=== PATIENT | female | born 1940 | race Caucasian/White ===

== ENCOUNTER 2016-12-30 11:13 | Outpatient (CLI) | payer MEDICARE, MEDICAID ==
[2016-12-30 11:50] LABS: Anion Gap 15 mmol/L (10-20); BUN (Urea Nitrogen) 15 mg/dL (9.8-20.1); Calc. Creatinine Clearance 0 mL/min (70-130); Calcium 9.9 mg/dL (7.8-10.44); Carbon Dioxide 25 mmol/L (23-31); Chloride 102 mmol/L (98-107); Estimated GFR-MDRD 70; Glucose 91 mg/dL (83-110); Sodium 137 mmol/L (136-145)
[2016-12-30 12:15] LABS: Hemoglobin 9.9 g/dL (12.0-16.0); Mean Corpuscular HGB CONC 34.3 g/dL (32.0-36.0); Mean Corpuscular Hemoglobin 40.2 pg (27.0-31.0); Mean Corpuscular Volume 117.3 fl (81.0-99.0); Mean Platelet Volume 7.6 fL (7.4-10.4); Platelet Count 95 thou/uL (130-400); RBC Distribution Width 14.9 % (11.5-14.5); Red Blood Cell (RBC) Count 2.46 mill/uL (4.20-5.40); White Blood Cell (WBC) Count 2.2 thou/uL (4.8-10.8)
[2016-12-30 12:16] LABS: Anisocytosis MODERATE=16-30 cells (100X) (0-5/hpf); Band 13 % (5-11); Eosinophils 1 % (0-10); Lymphocytes 36 % (21-51); MDiff Complete? YES; Macrocytosis MODERATE=16-30 cells (100X) (0-5/hpf); Metamyelocyte 2 % (0-0); Microcytosis SLIGHT = 6-15 cells (100X) (0-5/hpf); Monocytes 7 % (0-10); Neutrophil 37 % (42-75); Ovalocytes SLIGHT = 2-5 cells (100X) (0-1/hpf); PLT Morphology Comment Appears Adequate; Poikilocytosis MODERATE=16-30 cells (100X) (0-5/hpf); Reactive Lymphocytes 5 % (0-10)
== END 2016-12-30 11:14 | disposition home or self-care (01) ==
LOC: MADLABBHPM 11:13
PROVIDERS: ATTEND Family Medicine
DX: E87.1 Hypo-osmolality and hyponatremia (principal); D61.818 Other pancytopenia
CPT/HCPCS: 36415; 80048; 82728; 85025

== ENCOUNTER 2017-01-29 12:00 | Outpatient (CLI) | payer MEDICAID, MEDICARE ==
[2017-01-29 13:04] LABS: Anion Gap 12 mmol/L (10-20); BUN (Urea Nitrogen) 20 mg/dL (9.8-20.1); Calc. Creatinine Clearance 0 mL/min (70-130); Carbon Dioxide 26 mmol/L (23-31); Chloride 101 mmol/L (98-107); Estimated GFR-MDRD 71; Glucose 85 mg/dL (83-110); Potassium 4.9 mmol/L (3.5-5.1); Sodium 134 mmol/L (136-145)
[2017-01-29 13:11] LABS: Band 11 % (5-11); Hemoglobin 10.8 g/dL (12.0-16.0); Lymphocytes 32 % (21-51); MDiff Complete? YES; Mean Corpuscular HGB CONC 33.8 g/dL (32.0-36.0); Mean Corpuscular Hemoglobin 39.7 pg (27.0-31.0); Mean Corpuscular Volume 117.7 fl (81.0-99.0); Mean Platelet Volume 8.6 fL (7.4-10.4); Monocytes 4 % (0-10); Neutrophil 53 % (42-75); PLT Morphology Comment Appears Decreased; Platelet Count 78 thou/uL (130-400); RBC Distribution Width 14.5 % (11.5-14.5); Red Blood Cell (RBC) Count 2.72 mill/uL (4.20-5.40); White Blood Cell (WBC) Count 2.5 thou/uL (4.8-10.8)
== END 2017-01-29 12:01 | disposition home or self-care (01) ==
LOC: MADLABBHPM 12:00
PROVIDERS: ATTEND Family Medicine
DX: D61.818 Other pancytopenia (principal); E87.1 Hypo-osmolality and hyponatremia
CPT/HCPCS: 36415; 80048; 85025

== ENCOUNTER 2017-04-09 15:37 | Outpatient (CLI) | payer MEDICAID, MEDICARE ==
[2017-04-09 16:20] LABS: Anion Gap 12 mmol/L (10-20); BUN (Urea Nitrogen) 21 mg/dL (9.8-20.1); Calc. Creatinine Clearance 0 mL/min (70-130); Calcium 9.8 mg/dL (7.8-10.44); Carbon Dioxide 26 mmol/L (23-31); Chloride 101 mmol/L (98-107); Estimated GFR-MDRD 67; Glucose 98 mg/dL (83-110); Potassium 4.3 mmol/L (3.5-5.1); Sodium 135 mmol/L (136-145)
[2017-04-09 17:09] LABS: Hemoglobin 9.3 g/dL (12.0-16.0); Manual Diff?? YES; Mean Corpuscular Hemoglobin 37.7 pg (27.0-31.0); Mean Platelet Volume 7.7 fL (7.4-10.4); Platelet Count 94 thou/uL (130-400); RBC Distribution Width 15.8 % (11.5-14.5); Red Blood Cell (RBC) Count 2.47 mill/uL (4.20-5.40); White Blood Cell (WBC) Count 2.4 thou/uL (4.8-10.8)
[2017-04-09 17:10] LABS: Anisocytosis MODERATE=16-30 cells (100X) (0-5/hpf); Band 18 % (5-11); Eosinophils 2 % (0-10); Lymphocytes 22 % (21-51); MDiff Complete? YES; Monocytes 10 % (0-10); Neutrophil 48 % (42-75)
[2017-04-09 17:11] LABS: PLT Morphology Comment Appears Decreased
== END 2017-04-09 15:38 | disposition home or self-care (01) ==
LOC: MADLABBHPM 15:37
PROVIDERS: ATTEND Family Medicine
DX: D61.818 Other pancytopenia (principal)
CPT/HCPCS: 80048; 85025

== ENCOUNTER 2017-05-29 15:45 | Outpatient (CLI) | payer MEDICARE ==
[2017-05-29 16:18] LABS: Anion Gap 14 mmol/L (10-20); BUN (Urea Nitrogen) 16 mg/dL (9.8-20.1); Calc. Creatinine Clearance 0 mL/min (70-130); Calcium 9.7 mg/dL (7.8-10.44); Carbon Dioxide 25 mmol/L (23-31); Chloride 104 mmol/L (98-107); Estimated GFR-MDRD 77; Glucose 93 mg/dL (83-110); Potassium 4.5 mmol/L (3.5-5.1); Sodium 138 mmol/L (136-145)
[2017-05-29 19:00] LABS: Anisocytosis SLIGHT = 6-15 cells (100X) (0-5/hpf); Band 9 % (5-11); Eosinophils 2 % (0-10); Hemoglobin 9.4 g/dL (12.0-16.0); Hypochromia SLIGHT = 6-15 cells (100X) (0-5/hpf); Lymphocytes 18 % (21-51); MDiff Complete? YES; Mean Corpuscular Hemoglobin 39.5 pg (27.0-31.0); Mean Corpuscular Volume 116.4 fl (81.0-99.0); Mean Platelet Volume 7.4 fL (7.4-10.4); Monocytes 12 % (0-10); Neutrophil 59 % (42-75); PLT Morphology Comment Appears Decreased; Platelet Count 85 thou/uL (130-400); RBC Distribution Width 16.1 % (11.5-14.5); Red Blood Cell (RBC) Count 2.38 mill/uL (4.20-5.40); White Blood Cell (WBC) Count 2.4 thou/uL (4.8-10.8)
== END 2017-05-29 15:46 | disposition home or self-care (01) ==
LOC: MADLAB 15:45
PROVIDERS: ATTEND Family Medicine
DX: D61.818 Other pancytopenia (principal)
CPT/HCPCS: 36415; 80048; 85025

== ENCOUNTER 2018-07-13 15:57 | Inpatient (IN) | payer MEDICARE ==
[~2018-07-13 15:57] MED LIST: Sodium Chloride 0.9% 1,000 ML BAG ONE
[2018-07-13 16:46] LABS: INR-International Normal Ratio 1.3; PTT 41.6 SEC (22.9-36.1)
[2018-07-13 16:51] LABS: Anion Gap 14 mmol/L (10-20); BUN (Urea Nitrogen) 14 mg/dL (9.8-20.1); Calc. Creatinine Clearance 0 mL/min (70-130); Calcium 8.4 mg/dL (7.8-10.44); Carbon Dioxide 20 mmol/L (23-31); Chloride 106 mmol/L (98-107); Estimated GFR-MDRD 71; Glucose 74 mg/dL (83-110); Potassium 3.2 mmol/L (3.5-5.1); Sodium 137 mmol/L (136-145)
[2018-07-13 16:58] LABS: Troponin I 0.012 ng/mL (< 0.028)
[2018-07-13 17:18] LABS: Band 4 % (5-11); Hemoglobin 6.5 g/dL (12.0-16.0); Hypochromia MODERATE=16-30 cells (100X) (0-5/hpf); Lymphocytes 26 % (21-51); MDiff Complete? YES; Mean Corpuscular HGB CONC 30.7 g/dL (32.0-36.0); Mean Corpuscular Hemoglobin 39.8 pg (27.0-31.0); Mean Corpuscular Volume 129.6 fL (78.0-98.0); Mean Platelet Volume 7.4 fL (7.4-10.4); Monocytes 7 % (0-10); Neutrophil 63 % (42-75); PLT Morphology Comment Appears Decreased; Platelet Count 60 thou/uL (130-400); RBC Distribution Width 17.3 % (11.5-14.5); Red Blood Cell (RBC) Count 1.64 mill/uL (4.20-5.40); White Blood Cell (WBC) Count 1.4 thou/uL (4.8-10.8)
[2018-07-13 20:56] VITALS: BMI 21.8
[2018-07-13] MEDS ORDERED: HYDROcodone/Acetaminophen 5/325 mg Tablet PO PRN ×2 (20:59)
[2018-07-13] MEDS ORDERED: Ondansetron ODT 4 MG TAB PO PRN (20:59)
[2018-07-13] MEDS ORDERED: Famotidine 20 MG TAB PO SCH (21:15)
[2018-07-13] MEDS: HYDROcodone/Acetaminophen 10/325 mg Tablet PO SCH ×4 (22:18→22:33)
[2018-07-13] MEDS: Famotidine 20 MG TAB PO SCH (22:18)
[2018-07-14] MEDS: Acetaminophen 325 MG TAB PO PRN (01:20)
[2018-07-14] MEDS ORDERED: Sodium Chloride 0.9% 250 ML 250 ML IVPB SCH (01:30)
[2018-07-14] MEDS: Sodium Chloride 0.9% 1,000 ML IV SCH ×3 (02:19→22:36)
[2018-07-14] MEDS ORDERED: Albuterol Sulfate 2.5 mg/3 ml Neb NEB PRN (08:44)
[2018-07-14] MEDS: Famotidine 20 MG TAB PO SCH ×2 (09:24→20:13)
--- NOTE | 2018-07-14 09:27 | RAD ---
PORTABLE CHEST: History: Cough, congestion. FINDINGS: Patient is rotated on this exam. There is some elevation to the left hemidiaphragm. Heart size is crispin ewhat difficult to assess but is felt to be upper limits of normal. Right lung is clear. There is que stionable blunting to the left costophrenic angle. IMPRESSION: Elevated left hemidiaphragm. Some increased density in the left base, difficult to assess due to the diaphragm. This could indicate some effusion or possibly atelectasis or retrocardiac infiltrate. PA a nd lateral chest exam would be helpful in assessment. POS: [facility]
[2018-07-14] MEDS: HYDROcodone/Acetaminophen 5/325 mg Tablet PO PRN ×2 (09:45→22:18)
--- NOTE | 2018-07-14 10:08 | HP ---
CHIEF COMPLAINT: Bloody diarrhea and weakness. HISTORY OF PRESENT ILLNESS: Ms. Montes De Oca is a 77-year-old white female who has a history of myelodysplas tic syndrome manifest with anemia, thrombocytopenia and neutropenia. She also has a history of adeno carcinoma of the colon that was diagnosed in 2016 that she was not a candidate for any type of interv ention and had opted for no treatment. She also has COPD and rheumatoid arthritis. She has chronic low back pain secondary to spondylosis. She resides at her home and is usually able to manage her AD Ls and gets around in a wheelchair. She has family that comes in and assists her when needed and wit h her instrumental ADLs. The patient was brought to the emergency room on the late afternoon of 07/13/2018 because of progress fox weakness and also because of bloody diarrhea. The patient said for the last 4 weeks she has been having frequent watery bowel movements that had been bloody. The blood has been bright. She said h er appetite has not been as good as usual. She occasionally gets a little nauseated, but is not havi ng any vomiting. The patient said she has grown progressively weaker to where she could no longer ma nage herself and family has brought her to the emergency room. She did not want to be transferred to any hospital of higher level of care, says she knows she has a cancer nothing can be done for. She is hoping that she could just be managed here. The patient was evaluated in the emergency room and h er lab work showed an H&H of 6.5 and 21.2 with a white cell count of 1400 with 63% segs, 4% bands, 26 % lymphocytes, platelet count was 60,000. Her PT was 16, INR 1.3, PTT 41.6. Sodium 137, potassium 3 .2, BUN 14, creatinine 0.78, glucose 74. CK-MB 1 and troponin I was 0.012. The patient was admitted to the hospital with the diagnosis of the bloody diarrhea and also the severe anemia. Blood was ord ered for transfusion, but transfusion has been delayed because of an antibody found blood. This bloo d was forwarded to the blood bank and blood has been sent back as of the morning of 07/14/2018. The patient was seen early on the morning of 07/14/2018 by myself. The patient said that she was re stless during the night. The patient said that her family had brought her to the emergency room dena use of increasing weakness such that she was being dizzy when she got up and was much weaker, not abl e to take care of herself. She was also having the ongoing bloody diarrhea. She said she may have 7 -10 bowel movements in a 24-hour period that just has not improved. The patient did not want to go a nywhere else. She knows that there was nothing that could be done about her colon nor did she want a nything done. During the night her blood pressure did drop into the 70s systolic and she has been st arted on IV fluids and received a small bolus of fluids, bringing her pressure up to 80-90 and pulses in his 70s. PAST HISTORY: Colorectal cancer. Colonoscopy 08/2016 showed a mass 6-12 cm from the anal verge, bio psy showed a high grade adenocarcinoma. The patient has opted for no treatment with her myelodysplas ia. She would have been a very poor surgical or candidate for any chemoradiation therapy. The patie nt has a myelodysplasia that is manifest with chronic neutropenia, thrombocytopenia and anemia which is not treated. The patient has a history of rheumatoid arthritis, diverticulosis, severe low back p ain secondary to osteoporosis and spondylosis. She has been treated in the past for congestive heart failure, but has had no recent. She has a history of osteoporosis with multiple lumbar compression fractures. She has severe gait abnormality and usually gets around in a wheelchair. She has a histo ry of venous insufficiency of the lower extremities, stasis dermatitis of the lower legs. She has fox d a hysterectomy, surgery on her foot. PRESENT MEDICINES: Furosemide 20 mg daily as needed for swelling, multivitamin daily, Tylenol arthri tic strength 650 mg 1 every 6 hours as needed for pain, Flexeril 10 mg 1 at bedtime if needed, albute rol inhalation solution 0.08 albuterol by nebulizer twice a day and every 4 hours as needed, hydrocod one/acetaminophen 10/325 one at bedtime as needed. ALLERGIES: PENICILLIN. REVIEW OF SYSTEMS: CONSTITUTIONAL: The patient does think she has had any fevers. She does not know if her weight has changed any. HEAD AND NECK: No complaints. PULMONARY: The patient occasionally has a cough and sometimes has a cough and drainage. CARDIOVASCULAR: No chest pain. GASTROINTESTINAL: See present illness. ADLs: The patient gets around usually in her wheelchair and is able to transfer independently and ab le to dress herself and feed herself, usually continent of bowels and urine. HABITS: Alcohol none. Tobacco none. SOCIAL HISTORY: The patient lives alone, but her family looks in on her and helps her when needed an d helps her with all her instrumental ADLs. CODE STATUS: DNR. PHYSICAL EXAMINATION: GENERAL: Shows a 77-year-old white female who is lying in bed. She looks uncomfortable. She does n ot appear in any respiratory difficulty. VITAL SIGNS: Shows a temperature of 96.4, pulse 69, respirations 18, O2 sat 95% on room air, blood p ressure was 80/46, earlier 88/46, on admission 104/55. Her weight is 123. Last weight in the office in 12/2017 was 136. HEAD: Normocephalic. EYES: Pupils are equal, round, and reactive. EARS: TMs are clear. NOSE: Normal. MOUTH AND THROAT: Normal. NECK: Carotids are equal and strong, no bruits. Thyroid not enlarged. LUNGS: Have good breath sounds with expiratory rhonchi and some end expiratory wheeze. HEART: Regular rate. ABDOMEN: Soft, no organomegaly, nor areas of tenderness. EXTREMITIES: The patient has some trace edema in the ankles and feet and the skin is slightly red ar ound the ankles, but no increased heat. There is no tenderness in the calves. NEUROLOGIC: The patient alert, oriented x3 with generalized weakness, but no focal weakness. IMPRESSION: 1. Severe anemia. A. Secondary to myelodysplasia and chronic gastrointestinal blood loss. B. Symptomatic with a presenting hemoglobin of 6.5. 2. Chronic bloody diarrhea. A. 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 3. Colorectal adenocarcinoma. A. Colonoscopy on 08/2016 showed a mass at 6-12 cm, biopsy showed high grade adenocarcinoma. B. The patient is a very poor candidate for any type of intervention and has been opted for no treat ment. 4. Myelodysplastic syndrome. A. Complicated by chronic anemia, thrombocytopenia and neutropenia. B. Presently hemoglobin 6.5, platelet count 60,000 and white blood cell count 1.4 with 63% segs, 5. Severe generalized weakness. A. Unable to manage ADLs. 6. Hypotension secondary to chronic diarrhea and anemia. 7. Chronic low back pain. A. Secondary to lumbar spondylosis and history of multiple compression fractures. 8. Osteoporosis. A. History of multiple lumbar compression fractures. 9. Generalized weakness and gait abnormality. A. Usually wheelchair dependent. B. Marked decline where she is requiring assistance with her ADLs and not able to take care of herse lf. 10. Chronic obstructive pulmonary disease. 11. Venous insufficiency of the lower extremities. PLAN: The patient has been admitted to the hospital for palliative management. Will transfuse patie nt 2 units of blood. She is not a candidate for any treatment of her cancer of the colon and knows t hat this has probably progressed and probably the source of her bloody diarrhea. We will cautiously hydrate patient in effort to bring her pressure up. I feel like the transfusions will help this. We will manage her pain and also visit with patient about her long-term management. Right now she is w anting palliative management, and will discuss with her hospice care. See orders.
[2018-07-14] MEDS ORDERED: Sodium Chloride 0.9% 1,000 ML BAG ONE (11:40)
[2018-07-14] MEDS: Albuterol Sulfate 2.5 mg/3 ml Neb NEB SCH (19:00)
[2018-07-14] MEDS: HYDROcodone/Acetaminophen 10/325 mg Tablet PO SCH (20:14)
[2018-07-15] MEDS: HYDROcodone/Acetaminophen 5/325 mg Tablet PO PRN (05:36)
[2018-07-15 06:04] LABS: Hemoglobin 9.3 g/dL (12.0-16.0); Mean Corpuscular HGB CONC 33.1 g/dL (32.0-36.0); Mean Corpuscular Hemoglobin 37.3 pg (27.0-31.0); Mean Corpuscular Volume 112.5 fL (78.0-98.0); Mean Platelet Volume 6.9 fL (7.4-10.4); Platelet Count 51 thou/uL (130-400); RBC Distribution Width 25.5 % (11.5-14.5); Red Blood Cell (RBC) Count 2.49 mill/uL (4.20-5.40); White Blood Cell (WBC) Count 1.6 thou/uL (4.8-10.8)
[2018-07-15] MEDS: Albuterol Sulfate 2.5 mg/3 ml Neb NEB SCH ×2 (06:09→19:15)
[2018-07-15 06:11] LABS: ALT (SGPT) Less than 7 U/L (8-55); AST (SGOT) 15 U/L (5-34); Albumin 2.5 g/dL (3.4-4.8); Alkaline Phosphatase 525 U/L (40-150); Anion Gap 8 mmol/L (10-20); BUN (Urea Nitrogen) 9 mg/dL (9.8-20.1); Bilirubin, Total 1.9 mg/dL (0.2-1.2); Calc. Creatinine Clearance 58 mL/min (70-130); Calcium 7.9 mg/dL (7.8-10.44); Carbon Dioxide 23 mmol/L (23-31); Chloride 111 mmol/L (98-107); Estimated GFR-MDRD 82; Globulin 2.2 g/dL (2.4-3.5); Glucose 87 mg/dL (83-110); Potassium 3.1 mmol/L (3.5-5.1); Protein, Total 4.7 g/dL (6.0-8.3); Sodium 139 mmol/L (136-145)
[2018-07-15 06:23] LABS: Band 18 % (5-11); Lymphocytes 20 % (21-51); MDiff Complete? YES; Monocytes 11 % (0-10); Neutrophil 43 % (42-75)
[2018-07-15 06:24] LABS: Anisocytosis MARKED = >30 cells (100X) (0-5/hpf); Blast 1 % (0-0); Delete Auto Diff?? YES; Hypochromia MODERATE=16-30 cells (100X) (0-5/hpf); Macrocytosis MARKED = >30 cells (100X) (0-5/hpf); Metamyelocyte 3 % (0-0); Myelocyte 1 % (0-0); Poikilocytosis SLIGHT = 6-15 cells (100X) (0-5/hpf); Promyelocytes 1 % (0-0)
[2018-07-15] MEDS: Famotidine 20 MG TAB PO SCH ×2 (08:55→20:05)
--- NOTE | 2018-07-15 10:01 | PRG ---
DATE OF SERVICE: 07/15/2018 SUBJECTIVE: The patient said she is feeling a lot better. She rested good last night. She did rece fox the 2 units of blood. Her IV fluids have been able to be discontinued. Her blood pressure has b een much better. The patient said she is not having the bloody diarrhea-like she was, she said the s tools were much less frequent and just soft and a little dark, but there was no bright blood in the s tools. OBJECTIVE: The patient is alert, very talkative. Her color looks much better. She does not have th e paleness she did on admission. Her vital signs show a temperature of 96.9, pulse 67, respirations 16, O2 sat 96% on room air. Her blood pressure was 100/48, earlier 127/62. Lungs are clear. Heart, regular rate. Extremities have trace edema. Legs overall look better with less edema. LABORATORY DATA: Her H&H this morning after receiving 2 units of blood is 9.3 and 28, WBC count 1600 with 43% segs, 18% bands, 20% lymphocytes, 3 metamyelocytes, 1 myelocyte, 1 promyelocyte, 1 blast. The patient had 51,000 platelets. Her sodium is 139, potassium 3.1, BUN 9, creatinine 0.69, glucose 87. Chest x-ray was reviewed, showed an elevated left hemidiaphragm, some mild increased density in the l eft base, it was difficult to assess, possibly atelectasis. ASSESSMENT: 1. Severe anemia. A. Secondary to myelodysplasia and chronic gastrointestinal blood loss. B. Symptomatic with a presenting hemoglobin of 6.5. C. Improved. After transfusion with 2 units of packed RBCs hemoglobin up to 9.3 as of 07/15/2018. 2. Chronic bloody diarrhea. A. 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 B. Improved. The stools are much less frequent and are soft and just dark, no bright blood as of . 3. Colorectal adenocarcinoma. A. Colonoscopy on 08/2016 showed a mass at 6-12 cm, biopsy showed high grade adenocarcinoma. B. The patient is a very poor candidate for any type of intervention and has been opted for no treat ment. 4. Myelodysplastic syndrome. A. Complicated by chronic anemia, thrombocytopenia and neutropenia. B. Presently hemoglobin 6.5, platelet count 60,000 and white blood cell count 1.4 with 63% segs. C. Transfused 2 units of packed RBCs. Hemoglobin 9.3. Platelet count 50,000. WBC count 1.6 with a left shift with marked premature cells type present as of 07/15/2018. D. Managed palliatively with transfusion as necessary. 5. Severe generalized weakness. A. Unable to manage ADLs. B. Improved where she has been able to walk to the bathroom by pushing her wheelchair as of 8. 6. Hypotension secondary to chronic diarrhea and anemia. 7. Chronic low back pain. A. Secondary to lumbar spondylosis and history of multiple compression fractures. 8. Osteoporosis. A. History of multiple lumbar compression fractures. 9. Generalized weakness and gait abnormality. A. Usually wheelchair dependent. B. Marked decline where she is requiring assistance with her ADLs and not able to take care of herse lf. C. Improved as of 07/15/2018. 10. Chronic obstructive pulmonary disease. 11. Venous insufficiency of the lower extremities. PLAN: The patient looks better today. Her diarrhea is less. She is not having the bright red blood in her stools. Her color looks better. The symptoms from the severe anemia are much improved. We will advance activities. We will have physical therapy work with her and then discussed with her zehra t her long range wishes are.
[2018-07-15] MEDS: Acetaminophen 325 MG TAB PO PRN (20:06)
[2018-07-15] MEDS: HYDROcodone/Acetaminophen 10/325 mg Tablet PO SCH (20:12)
[2018-07-16] MEDS: HYDROcodone/Acetaminophen 5/325 mg Tablet PO PRN (04:21)
[2018-07-16] MEDS: Acetaminophen 325 MG TAB PO PRN (04:21)
[2018-07-16 05:46] LABS: Mean Corpuscular HGB CONC 32.8 g/dL (32.0-36.0); Mean Corpuscular Hemoglobin 37.3 pg (27.0-31.0); Mean Corpuscular Volume 113.6 fL (78.0-98.0); Mean Platelet Volume 6.7 fL (7.4-10.4); Platelet Count 41 thou/uL (130-400); Red Blood Cell (RBC) Count 2.42 mill/uL (4.20-5.40)
[2018-07-16 06:04] LABS: Band 11 % (5-11); Lymphocytes 25 % (21-51); MDiff Complete? YES; Neutrophil 40 % (42-75); Reactive Lymphocytes 4 % (0-10); White Blood Cell (WBC) Count 1.1 thou/uL (4.8-10.8)
[2018-07-16 06:05] LABS: Anisocytosis MARKED = >30 cells (100X) (0-5/hpf); Blast 1 % (0-0); Delete Auto Diff?? YES; Eosinophils 3 % (0-10); Hypochromia MARKED = >30 cells (100X) (0-5/hpf); Macrocytosis MARKED = >30 cells (100X) (0-5/hpf); Metamyelocyte 5 % (0-0); Monocytes 9 % (0-10); Myelocyte 2 % (0-0); Poikilocytosis SLIGHT = 6-15 cells (100X) (0-5/hpf); Promyelocytes 2 % (0-0)
[2018-07-16] MEDS: Albuterol Sulfate 2.5 mg/3 ml Neb NEB SCH ×2 (06:12→18:28)
[2018-07-16] MEDS: Famotidine 20 MG TAB PO SCH ×2 (08:20→20:45)
--- NOTE | 2018-07-16 09:51 | PRG ---
DATE OF SERVICE: 07/16/2018 SUBJECTIVE: The patient said she is doing okay this morning, said she did not rest too well last nig ht. She said she did take a pain medicine last night. She said at home she uses pain medicine to he lp her rest and then usually gets by with the plain Tylenol in the daytime. She did have a bloody carly wel movement yesterday which was felt to be secondary to her cancer of the colon for which she is not a candidate for treatment. OBJECTIVE: The patient is lying in bed. She is alert, talkative. She appears comfortable, no acute distress. Her temperature was 97, pulse 70, respirations 18, O2 sat 97% on room air, blood pressure 94/56. Her lungs were clear. Heart, regular rate. Extremities show trace edema. Her lab shows H&H of 9 and 27.4, white blood cell count 1100 with 40% segs, 11% bands, 25% lymphocytes, 4% reactive ly mphocytes, 2 metamyelocytes, 2 promyelocytes, 1 blast, platelet count 41,000. ASSESSMENT: 1. Severe anemia. A. Secondary to myelodysplasia and chronic gastrointestinal blood loss. B. Symptomatic with a presenting hemoglobin of 6.5. C. Improved. After transfusion with 2 units of packed RBCs hemoglobin up to 9.3 as of 07/15/2018. D. Hemoglobin 9.0 as of 07/16/2018. 2. Chronic bloody diarrhea. A. 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 B. Improved. The stools are much less frequent and are soft and just dark, no bright blood as of . C. The patient is still having some intermittent blood in her stools as a result of her cancer of th e colon. Not a candidate for any intervention or endoscopy nor does she wish any as of 07/16/2018. 3. Colorectal adenocarcinoma. A. Colonoscopy on 08/2016 showed a mass at 6-12 cm, biopsy showed high grade adenocarcinoma. B. The patient is a very poor candidate for any type of intervention and has been opted for no treat ment. C. Palliative management as 07/16/2018. 4. Myelodysplastic syndrome. A. Complicated by chronic anemia, thrombocytopenia and neutropenia. B. Presently hemoglobin 6.5, platelet count 60,000 and white blood cell count 1.4 with 63% segs. C. Transfused 2 units of packed RBCs. Hemoglobin 9.3. Platelet count 50,000. WBC count 1.6 with a left shift with marked premature cells type present as of 07/15/2018. D. White blood cell count 1.1, hemoglobin 9.0, platelet count 41,000 as of 07/16/2018. 5. Severe generalized weakness. A. Unable to manage ADLs. B. Improved where she has been able to walk to the bathroom by pushing her wheelchair as of 8. C. Remains weak, requiring assistance as of 07/16/2018. 6. Hypotension secondary to chronic diarrhea and anemia. 7. Chronic low back pain. A. Secondary to lumbar spondylosis and history of multiple compression fractures. 8. Osteoporosis. A. History of multiple lumbar compression fractures. 9. Generalized weakness and gait abnormality. A. Usually wheelchair dependent. B. Marked decline where she is requiring assistance with her ADLs and not able to take care of herse lf. C. Improved as of 07/15/2018. 10. Chronic obstructive pulmonary disease. 11. Venous insufficiency of the lower extremities. PLAN: I visited with patient about her long-term wishes. She is not a candidate for any type of int ervention with her cancer of the colon, particularly with the severe myelodysplastic syndrome for whi ch she is not a candidate for any intervention other than periodic transfusion. We will continue to monitor her H&H. We will try to build her strength up a little bit. Eventually she would like to go home if possible, if her strength would not allow she is willing to go to the long term and [facility] hospice care. We will try moving her to extended care tomorrow with the idea of some limit ed physical therapy in an effort to try to improve her functional capability and then either going ho tn or to the long term under hospice care.
[2018-07-16] MEDS: HYDROcodone/Acetaminophen 10/325 mg Tablet PO SCH (20:47)
[2018-07-17 05:57] LABS: Band 4 % (5-11); Hemoglobin 10.1 g/dL (12.0-16.0); Hypochromia MODERATE=16-30 cells (100X) (0-5/hpf); Lymphocytes 16 % (21-51); MDiff Complete? YES; Macrocytosis MODERATE=16-30 cells (100X) (0-5/hpf); Mean Corpuscular HGB CONC 32.5 g/dL (32.0-36.0); Mean Corpuscular Hemoglobin 37.1 pg (27.0-31.0); Mean Corpuscular Volume 114.1 fL (78.0-98.0); Mean Platelet Volume 7.7 fL (7.4-10.4); Monocytes 18 % (0-10); Neutrophil 52 % (42-75); PLT Morphology Comment Appears Decreased; Platelet Count 43 thou/uL (130-400); RBC Distribution Width 23.9 % (11.5-14.5); RBC Morphology Abnormal; Reactive Lymphocytes 10 % (0-10); Red Blood Cell (RBC) Count 2.71 mill/uL (4.20-5.40); White Blood Cell (WBC) Count 2.2 thou/uL (4.8-10.8)
[2018-07-17] MEDS: Albuterol Sulfate 2.5 mg/3 ml Neb NEB SCH (06:08)
[2018-07-17 08:06] VITALS: BP 102/55; TEMP 98.8
[2018-07-17] MEDS: Famotidine 20 MG TAB PO SCH (08:51)
[2018-07-17] MEDS: HYDROcodone/Acetaminophen 5/325 mg Tablet PO PRN (08:57)
--- NOTE | 2018-07-17 11:11 | PRG ---
DATE OF SERVICE: 07/17/2018 SUBJECTIVE: The patient said she feels a little better. The patient says at night time she prefers to take, hydrocodone/acetaminophen 5/325 two which she does at home instead of the one 10/325. The p atient said that she is still weak, but is able to get up and around a little bit. Her pain seemed t o be better controlled. She feels better. She is not having the diarrhea like she was and she said she has not had any blood in her stool today. OBJECTIVE: The patient is lying in bed. She is alert, is talkative, appears comfortable in no distr ess. Temp 98.8, pulse 74, respirations 18, O2 sat 97% on room air, blood pressure 102/55. Her lungs have expiratory rhonchi and some wheezes. Heart, regular rate. Extremities have trace edema. Her labs shows an H&H of 10.1 and 30.9, white cell count up to 2.2 with 52% segs, 4% bands, lymphocyt es 10%, reactive lymphocytes 10%, platelet count 43,000. ASSESSMENT: 1. Severe anemia. A. Secondary to myelodysplasia and chronic gastrointestinal blood loss. B. Symptomatic with a presenting hemoglobin of 6.5. C. Improved. After transfusion with 2 units of packed RBCs hemoglobin up to 9.3 as of 07/15/2018. D Hemoglobin up to 10.0 as of 07/17/2018. 2. Chronic bloody diarrhea. A. 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 B. Improved. No blood in the stools today as of 07/17/2018. C. Etiology of the blood in the stools is probably from her cancer of the colon that she is not a ca ndidate for any endoscopy nor does she want any intervention. 3. Colorectal adenocarcinoma. A. Colonoscopy on 08/2016 showed a mass at 6-12 cm, biopsy showed high grade adenocarcinoma. B. The patient is a very poor candidate for any type of intervention and has been opted for no treat ment. C. Palliative management as 07/16/2018. 4. Myelodysplastic syndrome. A. Complicated by chronic anemia, thrombocytopenia and neutropenia. B. Presently hemoglobin 6.5, platelet count 60,000 and white blood cell count 1.4 with 63% segs. C. Transfused 2 units of packed RBCs. Hemoglobin 9.3. Platelet count 50,000. WBC count 1.6 with a left shift with marked premature cells type present as of 07/15/2018. D. Hemoglobin 10.1, WBC count 2.2, platelet count 43,000. 5. Severe generalized weakness. A. Unable to manage ADLs. B. Improved where she has been able to walk to the bathroom by pushing her wheelchair as of 8. C. Remains weak, requiring assistance as of 07/17/2018. 6. Hypotension secondary to chronic diarrhea and anemia. 7. Chronic low back pain. A. Secondary to lumbar spondylosis and history of multiple compression fractures. 8. Osteoporosis. A. History of multiple lumbar compression fractures. 9. Generalized weakness and gait abnormality. A. Usually wheelchair dependent. B. Marked decline where she is requiring assistance with her ADLs and not able to take care of herse lf. C. Improved as of 07/15/2018. 10. Chronic obstructive pulmonary disease. 11. Venous insufficiency of the lower extremities. PLAN: The patient's condition is stable. She is still very weak, but is able to get up some and amb ulate short distance. We will move the patient to [facility] for PT and OT in an effort to try to improve her functional capabilities. Depending upon how she does will determine whether she will be able to return to her home or will need to go to the shelter. The patient once she is discharg ed though, she will probably go home or the shelter under hospice. We will move the patient to Extended [facility]. See orders.
--- NOTE | 2018-07-20 09:33 | PRG ---
DATE OF SERVICE: 07/15/2018 SUBJECTIVE: The patient said she is doing better. The patient said she is most comfortable lying on her left side. She has been getting up and down on her own and usually ambulates by pushing her whe elchair. She said her diarrhea is much better and there was just a small trace of blood when she wip es. Overall, she said this is better. She said she is feeling better. OBJECTIVE: GENERAL: The patient is lying in bed on her left side. She is alert, talkative, appears comfortable . VITAL SIGNS: Her temperature is 98.2, pulse 68, respirations 16, O2 sat 97% on room air, blood press ure 90/49, earlier 113/51. LUNGS: Clear. HEART: Regular rate. EXTREMITIES: Trace edema. ASSESSMENT: 1. Severe anemia. A. Secondary to myelodysplasia and chronic gastrointestinal blood loss. B. Symptomatic with a presenting hemoglobin of 6.5. C. Improved. After transfusion with 2 units of packed RBCs hemoglobin up to 9.3 as of 07/15/2018. D Hemoglobin up to 10.0 as of 07/17/2018. 2. Chronic bloody diarrhea. A. 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 B. Improved. Only trace of blood on the paper when cleansing following a bowel movement as of 07/18. C. Etiology of the blood in the stools is probably from her cancer of the colon that she is not a ca ndidate for any endoscopy nor does she want any intervention. 3. Colorectal adenocarcinoma. A. Colonoscopy on 08/2016 showed a mass at 6-12 cm, biopsy showed high grade adenocarcinoma. B. The patient is a very poor candidate for any type of intervention and has been opted for no treat ment. C. Palliative management as 07/16/2018. 4. Myelodysplastic syndrome. A. Complicated by chronic anemia, thrombocytopenia and neutropenia. B. Presently hemoglobin 6.5, platelet count 60,000 and white blood cell count 1.4 with 63% segs. C. Transfused 2 units of packed RBCs. Hemoglobin 9.3. Platelet count 50,000. WBC count 1.6 with a left shift with marked premature cells type present as of 07/15/2018. D. Hemoglobin 10.1, WBC count 2.2, platelet count 43,000. 5. Severe generalized weakness. A. Unable to manage ADLs. B. Improved where she has been able to walk to the bathroom by pushing her wheelchair as of 8. C. Remains weak, requiring assistance as of 07/17/2018. 6. Hypotension secondary to chronic diarrhea and anemia. 7. Chronic low back pain. A. Secondary to lumbar spondylosis and history of multiple compression fractures. 8. Osteoporosis. A. History of multiple lumbar compression fractures. 9. Generalized weakness and gait abnormality. A. Usually wheelchair dependent. B. Marked decline where she is requiring assistance with her ADLs and not able to take care of herse lf. C. Improved as of 07/18/2018. 10. Chronic obstructive pulmonary disease. 11. Venous insufficiency of the lower extremities. PLAN: We will continue present management, continue PT, OT. Long range plan will be for patient to be managed either at her home or longterm under hospice.
== END 2018-07-17 10:52 | disposition swing bed (61) | DRG 812 ==
LOC: MADERS 15:57 → MADMS 18:00
PROVIDERS: ADMIT Family Medicine; ATTEND Family Medicine
PROC: 30233N1 Transfusion of Nonautologous Red Blood Cells into Peripheral Vein, Percutaneous Approach (ICD-10-PCS; principal; 2018-07-14)
DX: D46.9 Myelodysplastic syndrome, unspecified (principal); C19 Malignant neoplasm of rectosigmoid junction; Z51.5 Encounter for palliative care; D69.6 Thrombocytopenia, unspecified; D70.9 Neutropenia, unspecified; J44.9 Chronic obstructive pulmonary disease, unspecified; M06.9 Rheumatoid arthritis, unspecified; M54.5 Low back pain; G89.29 Other chronic pain; M81.0 Age-related osteoporosis without current pathological fracture; Z66 Do not resuscitate; K52.9 Noninfective gastroenteritis and colitis, unspecified; I95.9 Hypotension, unspecified; M47.896 Other spondylosis, lumbar region; R26.9 Unspecified abnormalities of gait and mobility; Z99.3 Dependence on wheelchair; I87.2 Venous insufficiency (chronic) (peripheral); Z91.81 History of falling; D50.0 Iron deficiency anemia secondary to blood loss (chronic); F17.210 Nicotine dependence, cigarettes, uncomplicated
CPT/HCPCS: 36415; 36430; 71045; 80048; 80053; 82553; 84484; 85007; 85025; 85027; 85610; 85730; 86850; 86870; 86880; 86900; 86901; 86905; 86922; 86970; 93005; 94760; 96360; A4216; G8987-GO-CJ; G8988-GO-CH; J7050; P9016

== ENCOUNTER 2018-07-17 08:58 | Inpatient (IN) | payer MEDICARE ==
[2018-07-17] MEDS ORDERED: Albuterol Sulfate 2.5 mg/3 ml Neb NEB PRN (09:54)
[2018-07-17] MEDS: Acetaminophen 500 MG TAB PO PRN (14:42)
[2018-07-17] MEDS: Albuterol Sulfate 2.5 mg/3 ml Neb NEB SCH (21:19)
[2018-07-17] MEDS: HYDROcodone/Acetaminophen 5/325 mg Tablet PO SCH (21:20)
[2018-07-18] MEDS: Acetaminophen 500 MG TAB PO PRN ×2 (06:05→16:08)
[2018-07-18] MEDS: Albuterol Sulfate 2.5 mg/3 ml Neb NEB SCH ×2 (06:22→19:00)
[2018-07-18] MEDS ORDERED: Hydrocortisone Acetate 25 MG Suppository PR PRN (14:31)
[2018-07-18] MEDS ORDERED: Proctozone-HC 2.5% Cream 30 GM TUBE TOP PRN (15:58)
[2018-07-18] MEDS: Famotidine 20 MG TAB PO SCH (20:34)
[2018-07-18] MEDS: HYDROcodone/Acetaminophen 5/325 mg Tablet PO SCH (20:35)
[2018-07-19] MEDS: Acetaminophen 500 MG TAB PO PRN (06:16)
[2018-07-19] MEDS: Albuterol Sulfate 2.5 mg/3 ml Neb NEB SCH ×2 (06:17→20:00)
[2018-07-19] MEDS: Famotidine 20 MG TAB PO SCH ×2 (09:11→21:21)
[2018-07-19] MEDS: Proctozone-HC 2.5% Cream 30 GM TUBE TOP SCH (09:11)
[2018-07-19] MEDS: HYDROcodone/Acetaminophen 5/325 mg Tablet PO PRN (09:20)
[2018-07-19] MEDS: HYDROcodone/Acetaminophen 5/325 mg Tablet PO SCH (19:26)
[2018-07-20] MEDS: Acetaminophen 500 MG TAB PO PRN (05:48)
[2018-07-20] MEDS: Albuterol Sulfate 2.5 mg/3 ml Neb NEB SCH ×2 (06:02→21:06)
[2018-07-20 09:07] LABS: Hemoglobin 9.2 g/dL (12.0-16.0); Mean Corpuscular Hemoglobin 38.2 pg (27.0-31.0); Mean Corpuscular Volume 115.8 fL (78.0-98.0); Mean Platelet Volume 10.5 fL (7.4-10.4); Platelet Count 46 thou/uL (130-400); RBC Distribution Width 23.7 % (11.5-14.5); Red Blood Cell (RBC) Count 2.41 mill/uL (4.20-5.40); White Blood Cell (WBC) Count 1.4 thou/uL (4.8-10.8)
[2018-07-20 09:08] LABS: Anion Gap 8 mmol/L (10-20); BUN (Urea Nitrogen) 12 mg/dL (9.8-20.1); Calc. Creatinine Clearance 63 mL/min (70-130); Calcium 8.3 mg/dL (7.8-10.44); Carbon Dioxide 26 mmol/L (23-31); Chloride 106 mmol/L (98-107); Estimated GFR-MDRD 85; Glucose 92 mg/dL (83-110); Potassium 3.1 mmol/L (3.5-5.1); Sodium 137 mmol/L (136-145)
[2018-07-20] MEDS: Proctozone-HC 2.5% Cream 30 GM TUBE TOP SCH (09:18)
[2018-07-20] MEDS: Famotidine 20 MG TAB PO SCH ×2 (09:18→20:40)
[2018-07-20 09:50] LABS: Anisocytosis SLIGHT = 6-15 cells (100X) (0-5/hpf); Band 26 % (5-11); Lymphocytes 23 % (21-51); MDiff Complete? YES; Manual Diff?? YES; Monocytes 11 % (0-10); Neutrophil 40 % (42-75); Poikilocytosis SLIGHT = 6-15 cells (100X) (0-5/hpf)
[2018-07-20 09:51] LABS: Hypochromia SLIGHT = 6-15 cells (100X) (0-5/hpf); PLT Morphology Comment Appears Decreased
[2018-07-20] MEDS: HYDROcodone/Acetaminophen 5/325 mg Tablet PO PRN (11:46)
--- NOTE | 2018-07-20 12:48 | PRG ---
DATE OF SERVICE: 07/20/2018 SUBJECTIVE: The patient said she has had multiple bowel movements since yesterday and these are usua lly accompanied by some blood. She just feels weak today. OBJECTIVE: GENERAL: The patient is lying in her bed on her left side. VITAL SIGNS: Her temperature was 97.2, pulse 72, respirations are 20, O2 sat 95%, blood pressure 104 /52. LUNGS: Clear. HEART: Regular rate. ABDOMEN: Soft, nontender. GENERAL: The patient appears a little pale. ASSESSMENT: 1. Severe anemia. A. Secondary to myelodysplasia and chronic gastrointestinal blood loss. B. Symptomatic with a presenting hemoglobin of 6.5. C. Improved. After transfusion with 2 units of packed RBCs hemoglobin up to 9.3 as of 07/15/2018. D Hemoglobin up to 10.0 as of 07/17/2018. 2. Chronic bloody diarrhea. A. 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 B. The patient is having recurrence of the bloody diarrhea, as of 07/20/2018. C. Etiology of the blood in the stools is probably from her cancer of the colon that she is not a ca ndidate for any endoscopy nor does she want any intervention. 3. Colorectal adenocarcinoma. A. Colonoscopy on 08/2016 showed a mass at 6-12 cm, biopsy showed high grade adenocarcinoma. B. The patient is a very poor candidate for any type of intervention and has been opted for no treat ment. C. Palliative management as 07/16/2018. 4. Myelodysplastic syndrome. A. Complicated by chronic anemia, thrombocytopenia and neutropenia. B. Presently hemoglobin 6.5, platelet count 60,000 and white blood cell count 1.4 with 63% segs. C. Transfused 2 units of packed RBCs. Hemoglobin 9.3. Platelet count 50,000. WBC count 1.6 with a left shift with marked premature cells type present as of 07/15/2018. D. Hemoglobin 10.1, WBC count 2.2, platelet count 43,000. 5. Severe generalized weakness. A. Unable to manage ADLs. B. Improved where she has been able to walk to the bathroom by pushing her wheelchair as of 8. C. Remains weak, requiring assistance as of 07/17/2018. 6. Hypotension secondary to chronic diarrhea and anemia. 7. Chronic low back pain. A. Secondary to lumbar spondylosis and history of multiple compression fractures. 8. Osteoporosis. A. History of multiple lumbar compression fractures. 9. Chronic obstructive pulmonary disease. 10. Venous insufficiency of the lower extremities. PLAN: We will recheck a CBC and basic metabolic panel this morning. We will check the stools for C. difficile, .
[2018-07-20] MEDS: HYDROcodone/Acetaminophen 5/325 mg Tablet PO SCH (20:40)
[2018-07-21] MEDS: Albuterol Sulfate 2.5 mg/3 ml Neb NEB SCH ×2 (06:01→20:23)
[2018-07-21] MEDS: Acetaminophen 500 MG TAB PO PRN (07:04)
[2018-07-21] MEDS: Famotidine 20 MG TAB PO SCH ×2 (09:00→20:24)
[2018-07-21] MEDS: Proctozone-HC 2.5% Cream 30 GM TUBE TOP SCH (09:00)
--- NOTE | 2018-07-21 10:29 | PRG ---
DATE OF SERVICE: 07/21/2018 SUBJECTIVE: The patient says she feels a little better. She has been too weak really to participate much with physical therapy. She said she is little sore around her bottom and is using the Proctozo ne cream. The patient said her diarrhea is a little better with just a little trace amount of blood present. OBJECTIVE: The patient lying in bed on her left side. She looks better today. She appears in no ac [place] distress. Her temperature is 98.9, pulse 77, respirations 22, O2 sat 92% on room air, blood pres sure 108/57. Her lungs have some expiratory rhonchi, no rales. Heart, regular rate. Extremities fox ve trace edema. Her lab from yesterday shows an H&H of 9.2 and 27.9, white cell count 1400 with 40% segs, 26% bands, and platelet count of 46,000. Sodium 137, potassium 3.1, BUN 12, creatinine 0.67. ASSESSMENT: 1. Severe anemia. A. Secondary to myelodysplasia and chronic gastrointestinal blood loss. B. Symptomatic with a presenting hemoglobin of 6.5. C. Improved. After transfusion with 2 units of packed RBCs hemoglobin up to 9.3 as of 07/15/2018. D. Hemoglobin 9.2 as of 07/20/2018. 2. Chronic bloody diarrhea. A. 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 B. Stable. The frequency of the stools and the blood is less as of 07/21/2018. C. Etiology of the blood in the stools is probably from her cancer of the colon that she is not a ca ndidate for any endoscopy nor does she want any intervention. 3. Colorectal adenocarcinoma. A. Colonoscopy on 08/2016 showed a mass at 6-12 cm, biopsy showed high grade adenocarcinoma. B. The patient is a very poor candidate for any type of intervention and has been opted for no treat ment. C. Palliative management as 07/16/2018. 4. Myelodysplastic syndrome. A. Complicated by chronic anemia, thrombocytopenia and neutropenia. B. Presently hemoglobin 6.5, platelet count 60,000 and white blood cell count 1.4 with 63% segs. C. Transfused 2 units of packed RBCs. Hemoglobin 9.3. Platelet count 50,000. WBC count 1.6 with a left shift with marked premature cells type present as of 07/15/2018. D. Hemoglobin 10.1, WBC count 2.2, platelet count 43,000. E. Stable as of 07/21/2018. 5. Severe generalized weakness. A. Unable to manage ADLs. B. Improved where she has been able to walk to the bathroom by pushing her wheelchair as of 8. C. Remains weak, requiring assistance as of 07/17/2018. 6. Hypotension secondary to chronic diarrhea and anemia. 7. Chronic low back pain. A. Secondary to lumbar spondylosis and history of multiple compression fractures. 8. Osteoporosis. A. History of multiple lumbar compression fractures. 9. Chronic obstructive pulmonary disease. 10. Venous insufficiency of the lower extremities. PLAN: Continue present care. Continue comfort measures. Will have physical therapy work with her a s she is able. Will visit with the patient again and family about long-term management post-hospital ization.
[2018-07-21] MEDS: HYDROcodone/Acetaminophen 5/325 mg Tablet PO PRN (14:45)
[2018-07-21] MEDS: Potassium Chloride 10 MEQ TAB PO SCH (17:07)
[2018-07-21] MEDS: HYDROcodone/Acetaminophen 5/325 mg Tablet PO SCH (20:24)
[2018-07-21] MEDS ORDERED: traZODone HCl 50 MG TAB PO SCH (23:00)
[2018-07-21] MEDS ORDERED: traZODone HCl 50 MG TAB PO PRN (23:01)
[2018-07-22] MEDS: HYDROcodone/Acetaminophen 5/325 mg Tablet PO PRN ×2 (01:19→14:56)
[2018-07-22] MEDS: Albuterol Sulfate 2.5 mg/3 ml Neb NEB SCH ×2 (06:06→20:10)
[2018-07-22] MEDS: Famotidine 20 MG TAB PO SCH ×2 (08:34→20:27)
[2018-07-22] MEDS: Potassium Chloride 10 MEQ TAB PO SCH ×2 (08:35→16:11)
[2018-07-22] MEDS: Proctozone-HC 2.5% Cream 30 GM TUBE TOP SCH (08:36)
--- NOTE | 2018-07-22 11:17 | PRG ---
DATE OF SERVICE: 07/22/2018 SUBJECTIVE: The patient said she is just weak and not able to do a lot of physical therapy. She is getting up to go to the bathroom with help or using her wheelchair. She says her diarrhea is better. She said she still has just a little blood with her stools, but not as much. OBJECTIVE: The patient is weak, but appears in no acute distress. Her vital signs show a temperatur e of 97.2, pulse 77, respirations 16, O2 sat 96% on room air, blood pressure this morning was low at 75/39. Her lungs have some expiratory wheeze. Heart, regular rate. Extremities have trace edema. Last evening she had trouble sleeping and was a little nervous and was given a trazodone 25 mg which helped. ASSESSMENT: 1. Severe anemia. A. Secondary to myelodysplasia and chronic gastrointestinal blood loss. B. Symptomatic with a presenting hemoglobin of 6.5. C. Improved. After transfusion with 2 units of packed RBCs hemoglobin up to 9.3 as of 07/15/2018. D. Hemoglobin 9.2 as of 07/20/2018. 2. Chronic bloody diarrhea. A. 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 B. The frequency of the stools has diminished and the blood is minimal as of 07/22/2018. C. Etiology of the blood in the stools is probably from her cancer of the colon that she is not a ca ndidate for any endoscopy nor does she want any intervention. 3. Colorectal adenocarcinoma. A. Colonoscopy on 08/2016 showed a mass at 6-12 cm, biopsy showed high grade adenocarcinoma. B. The patient is a very poor candidate for any type of intervention and has been opted for no treat ment. C. Palliative management as 07/16/2018. 4. Myelodysplastic syndrome. A. Complicated by chronic anemia, thrombocytopenia and neutropenia. B. Presently hemoglobin 6.5, platelet count 60,000 and white blood cell count 1.4 with 63% segs. C. Transfused 2 units of packed RBCs. Hemoglobin 9.3. Platelet count 50,000. WBC count 1.6 with a left shift with marked premature cells type present as of 07/15/2018. D. Hemoglobin 10.1, WBC count 2.2, platelet count 43,000. E. Stable as of 07/21/2018. 5. Severe generalized weakness. A. Unable to manage ADLs. B. Spends most of her time in bed, occasionally able to get up, but has not been able to do much wit h physical therapy, particularly when blood pressure is a little lower as of 07/22/2018. C. Remains weak, requiring assistance as of 07/17/2018. 6. Hypotension secondary to chronic diarrhea and anemia. 7. Chronic low back pain. A. Secondary to lumbar spondylosis and history of multiple compression fractures. 8. Osteoporosis. A. History of multiple lumbar compression fractures. 9. Chronic obstructive pulmonary disease. 10. Venous insufficiency of the lower extremities. PLAN: The patient has remained extremely weak, still has some blood in her stools, feel this is fro m the cancer of her lower colon and rectum. She is not a candidate for any type of treatment or inva sive diagnostics particularly with her severe myelodysplasia. The patient is being managed palliativ [place]. We will place her on neb treatments twice a day and every 4 hours as needed. Physical Therapy will be held on the days her pressure is low. We will relook at blood count in the morning. 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 She is not strong enough, nor will t he expectations be that she will improve enough to be able to manage herself at home. I have recomme zena that she enter the group home under hospice care which she knows is probably the best. She wa nts to try a little longer here and maybe [facility] next week to enter the group home.
[2018-07-22] MEDS: HYDROcodone/Acetaminophen 5/325 mg Tablet PO SCH (20:28)
[2018-07-23 05:45] LABS: Anion Gap 8 mmol/L (10-20); BUN (Urea Nitrogen) 27 mg/dL (9.8-20.1); Calc. Creatinine Clearance 59 mL/min (70-130); Calcium 8.4 mg/dL (7.8-10.44); Carbon Dioxide 26 mmol/L (23-31); Chloride 107 mmol/L (98-107); Estimated GFR-MDRD 78; Glucose 89 mg/dL (83-110); Potassium 4.1 mmol/L (3.5-5.1); Sodium 137 mmol/L (136-145)
[2018-07-23] MEDS: Albuterol Sulfate 2.5 mg/3 ml Neb NEB SCH ×2 (05:49→18:14)
[2018-07-23] MEDS: HYDROcodone/Acetaminophen 5/325 mg Tablet PO PRN ×2 (05:54→16:05)
[2018-07-23 05:59] LABS: Anisocytosis SLIGHT = 6-15 cells (100X) (0-5/hpf); Eosinophils 1 % (0-10); Giant Platelets SLIGHT; Hemoglobin 5.9 g/dL (12.0-16.0); Hypochromia MARKED = >30 cells (100X) (0-5/hpf); Large Platelets SLIGHT; Lymphocytes 25 % (21-51); MDiff Complete? YES; Macrocytosis MODERATE=16-30 cells (100X) (0-5/hpf); Mean Corpuscular HGB CONC 31.9 g/dL (32.0-36.0); Mean Corpuscular Hemoglobin 39.5 pg (27.0-31.0); Mean Corpuscular Volume 123.8 fL (78.0-98.0); Mean Platelet Volume 14.7 fL (7.4-10.4); Monocytes 9 % (0-10); Neutrophil 62 % (42-75); PLT Morphology Comment Appears Decreased; Platelet Count 34 thou/uL (130-400); Polychromasia SLIGHT = 2-3 cells (100X) (0-2/hpf); RBC Distribution Width 18.7 % (11.5-14.5); Reactive Lymphocytes 3 % (0-10); Red Blood Cell (RBC) Count 1.49 mill/uL (4.20-5.40); White Blood Cell (WBC) Count 1.3 thou/uL (4.8-10.8)
[2018-07-23] MEDS: Proctozone-HC 2.5% Cream 30 GM TUBE TOP SCH (08:41)
[2018-07-23] MEDS: Potassium Chloride 10 MEQ TAB PO SCH ×2 (08:41→16:06)
[2018-07-23] MEDS: Sodium Chloride 0.9% 1,000 ML IV SCH ×2 (08:41→16:06)
--- NOTE | 2018-07-23 10:00 | PRG ---
DATE OF SERVICE: 07/23/2018 SUBJECTIVE: The patient said she just feels weak. She still had some of the loose stools with some blood present. OBJECTIVE: The patient lying on her left side. She is very weak. She is pale. Her vital signs; te mperature 97.2, pulse 84, respirations 18, O2 sat 91% on room air, blood pressure 75/37. Lungs; ther e is coarse expiratory breath sounds. Heart, regular rate. Extremities have trace edema. Her lab this morning shows an H&H of 5.9 and 18.5, WBC count 1300 with 62% segs, 25% lymphocytes, and a platelet count of 34,000. Sodium 137, potassium 4.1, BUN 27, creatinine 0.72, GFR 78, glucose 89. ASSESSMENT: 1. Severe anemia. A. Secondary to myelodysplasia and chronic gastrointestinal blood loss. B. Symptomatic with a presenting hemoglobin of 6.5. C. Improved. After transfusion with 2 units of packed RBCs hemoglobin up to 9.3 as of 07/15/2018. D. Hemoglobin dropped to 5.9 as of 07/23/2018. Secondary to the chronic blood loss from the colon a s of 07/23/2018. Hemoglobin is 5.9. 2. Chronic bloody diarrhea. A. 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 B. The patient continues to have some small amount of bleeding in her intestinal tract, but her hemo globin has dropped further as of 07/23/2018. C. Etiology of the blood in the stools is probably from her cancer of the colon that she is not a ca ndidate for any endoscopy nor does she want any intervention. 3. Colorectal adenocarcinoma. A. Colonoscopy on 08/2016 showed a mass at 6-12 cm, biopsy showed high grade adenocarcinoma. B. The patient is a very poor candidate for any type of intervention and has been opted for no treat ment. C. Palliative management as 07/16/2018. 4. Myelodysplastic syndrome. A. Complicated by chronic anemia, thrombocytopenia and neutropenia. B. Presently hemoglobin 6.5, platelet count 60,000 and white blood cell count 1.4 with 63% segs. C. Transfused 2 units of packed RBCs. Hemoglobin 9.3. Platelet count 50,000. WBC count 1.6 with a left shift with marked premature cells type present as of 07/15/2018. D. Hemoglobin 5.9, platelet count 34,000, white blood cell count 1.4 thousand as of 07/23/2018. E. Stable as of 07/21/2018. 5. Severe generalized weakness. A. Unable to manage ADLs. B. Spends most of her time in bed, occasionally able to get up, but has not been able to do much wit h physical therapy, particularly when blood pressure is a little lower as of 07/22/2018. C. Remains weak, requiring assistance as of 07/17/2018. 6. Hypotension secondary to chronic diarrhea and anemia. 7. Chronic low back pain. A. Secondary to lumbar spondylosis and history of multiple compression fractures. 8. Osteoporosis. A. History of multiple lumbar compression fractures. 9. Chronic obstructive pulmonary disease. 10. Venous insufficiency of the lower extremities. PLAN: W will continue palliative management. The patient though still wishes to receive transfusio ns. She is not a candidate for any type of invasive intervention or treatment due to her severe myel odysplasia. Her blood pressure is low. We will start her on normal saline and transfuse 2 units of packed RBCs. Her prognosis remains very, very poor.
[2018-07-23] MEDS: Ondansetron ODT 4 MG TAB PO PRN ×2 (11:44→19:40)
[2018-07-23 18:45] VITALS: BMI 22.8
[2018-07-23] MEDS: HYDROcodone/Acetaminophen 5/325 mg Tablet PO SCH (20:13)
[2018-07-24] MEDS: HYDROcodone/Acetaminophen 5/325 mg Tablet PO PRN ×2 (02:27→18:15)
[2018-07-24] MEDS: Albuterol Sulfate 2.5 mg/3 ml Neb NEB SCH ×2 (05:38→20:56)
[2018-07-24] MEDS: Sodium Chloride 0.9% 1,000 ML IV SCH ×2 (05:43→22:13)
[2018-07-24] MEDS: Potassium Chloride 10 MEQ TAB PO SCH ×2 (08:48→17:05)
[2018-07-24] MEDS: Proctozone-HC 2.5% Cream 30 GM TUBE TOP SCH (08:49)
[2018-07-24 09:11] LABS: Anisocytosis SLIGHT = 6-15 cells (100X) (0-5/hpf); Elliptocytes SLIGHT = 2-5 cells (100X) (0-1/hpf); Hemoglobin 4.9 g/dL (12.0-16.0); Hypochromia SLIGHT = 6-15 cells (100X) (0-5/hpf); Large Platelets SLIGHT; Lymphocytes 30 % (21-51); MDiff Complete? YES; Macrocytosis SLIGHT = 6-15 cells (100X) (0-5/hpf); Mean Corpuscular HGB CONC 30.9 g/dL (32.0-36.0); Mean Corpuscular Hemoglobin 39.6 pg (27.0-31.0); Mean Corpuscular Volume 128.1 fL (78.0-98.0); Mean Platelet Volume 11.3 fL (7.4-10.4); Monocytes 16 % (0-10); Neutrophil 54 % (42-75); Nucleated RBC 2 % (0); Platelet Count 33 thou/uL (130-400); Poikilocytosis SLIGHT = 6-15 cells (100X) (0-5/hpf); RBC Distribution Width 16.7 % (11.5-14.5); Red Blood Cell (RBC) Count 1.25 mill/uL (4.20-5.40); Rouleaux Formation SLIGHT = 1-5 cells (100X) (None Seen); White Blood Cell (WBC) Count 1.1 thou/uL (4.8-10.8)
--- NOTE | 2018-07-24 10:57 | PRG ---
DATE OF SERVICE: 07/24/2018 SUBJECTIVE: The patient said she is very tired this morning, just has not really been able to get up . Whenever she has even got up to sit up, she has required more help than usual. She has not yet re ceived the 2 units of packed cells ordered yesterday due to multiple antibodies. We will recheck blo od count this morning just to see where we are. She did not report any more blood, but still having some soft stools that she is passing and having some seepage at times of these stools. OBJECTIVE: The patient lying in bed. She is alert and talkative. She appears very tired, but not i n any acute distress. Her vital signs show a temperature of 98.4, pulse 79, respirations 16, O2 sat 99% on room air, blood pressure 85/48 last evening. This morning it is 72/39.. Her lungs have expir atory rhonchi, no rales. Heart, regular rate. Her perianal area; there is some brown malodorous sto ols present in the diaper that are soft and some just brown soft stools around the anus. There was n o bright red blood or black tarry stools. Extremities; trace edema. ASSESSMENT: 1. Severe anemia. A. Secondary to myelodysplasia and chronic gastrointestinal blood loss. B. Symptomatic with a presenting hemoglobin of 6.5. C. Improved. After transfusion with 2 units of packed RBCs hemoglobin up to 9.3 as of 07/15/2018. D. Hemoglobin dropped to 5.9 as of 07/23/2018. Secondary to the chronic blood loss from the colon a s of 07/23/2018. Hemoglobin is 5.9. E. Blood ordered for 07/23/2018 to be transfused has not been completed yet due to multiple antibiot ics. We will transfuse when received. 2. Chronic bloody diarrhea. A. Secondary to her adenocarcinoma of the colorectum. B. Content to have multiple small liquid to soft stools intermittently with blood. 3. Colorectal adenocarcinoma. A. Colonoscopy on 08/2016 showed a mass at 6-12 cm, biopsy showed high grade adenocarcinoma. B. The patient is a very poor candidate for any type of intervention and has been opted for no treat ment. C. Palliative management as 07/16/2018. 4. Myelodysplastic syndrome. A. Complicated by chronic anemia, thrombocytopenia and neutropenia. B. Hemoglobin has been down to 5.9 with platelet count of 34,000 and white blood cell count of 1.4 th ousand as of 07/23/2018. Blood has not been transfused that was ordered due to antibodies as of 02/2018. C. Has received 2 units of packed RBCs during this admission for a hemoglobin of 6.5. D. Palliative management with still desiring transfusion as needed. E. Stable as of 07/21/2018. 5. Severe generalized weakness. A. Unable to manage ADLs. B. Spends most of her time in bed, occasionally able to get up, but has not been able to do much wit h physical therapy, particularly when blood pressure is a little lower as of 07/22/2018. C. Remains weak, requiring assistance as of 07/17/2018. 6. Hypotension secondary to chronic diarrhea and anemia. 7. Chronic low back pain. A. Secondary to lumbar spondylosis and history of multiple compression fractures. 8. Osteoporosis. A. History of multiple lumbar compression fractures. 9. Chronic obstructive pulmonary disease. 10. Venous insufficiency of the lower extremities. PLAN: The patient's condition has been one of progressive decline with increasing weakness and reocc urrence of the anemia. This severe anemia is secondary to not only the chronic blood loss from the a denocarcinoma, but also from her severe myelodysplastic syndrome. The patient is being managed palli atively, but still desiring transfusions. We will transfuse these 2 units of blood when they are anabell ilable. Presently, the blood bank having difficulty due to the multiple antibodies. I visited again with patient, if her condition stabilizes then she will eventually go to the correction under hosp ice. She is a DNR. Her blood pressure has been very low.
[2018-07-24] MEDS: Acetaminophen 500 MG TAB PO PRN (15:31)
[2018-07-24 20:50] LABS: Anisocytosis SLIGHT = 6-15 cells (100X) (0-5/hpf); Band 6 % (5-11); Hemoglobin 7.2 g/dL (12.0-16.0); Hypochromia MODERATE=16-30 cells (100X) (0-5/hpf); Lymphocytes 24 % (21-51); MDiff Complete? YES; Macrocytosis MODERATE=16-30 cells (100X) (0-5/hpf); Mean Corpuscular HGB CONC 32.7 g/dL (32.0-36.0); Mean Corpuscular Hemoglobin 37.2 pg (27.0-31.0); Mean Corpuscular Volume 113.7 fL (78.0-98.0); Mean Platelet Volume 12.3 fL (7.4-10.4); Metamyelocyte 1 % (0-0); Microcytosis SLIGHT = 6-15 cells (100X) (0-5/hpf); Monocytes 8 % (0-10); Neutrophil 61 % (42-75); PLT Morphology Comment Appears Decreased; Platelet Count 33 thou/uL (130-400); Poikilocytosis SLIGHT = 6-15 cells (100X) (0-5/hpf); RBC Distribution Width 23.4 % (11.5-14.5); RBC Morphology Abnormal; Red Blood Cell (RBC) Count 1.93 mill/uL (4.20-5.40); Tear Drops SLIGHT = 2-5 cells (100X) (0-1/hpf); White Blood Cell (WBC) Count 1.4 thou/uL (4.8-10.8)
[2018-07-24] MEDS: HYDROcodone/Acetaminophen 5/325 mg Tablet PO SCH (20:58)
[2018-07-25] MEDS ORDERED: Lorazepam 1 MG TAB PO PRN (06:02)
[2018-07-25] MEDS: Morphine 10 MG/0.5 ML ORAL SYRINGE SL PRN ×5 (06:18→22:25)
[2018-07-25] MEDS ORDERED: HYDROcodone/Acetaminophen 5/325 mg Tablet PO PRN (06:35)
--- NOTE | 2018-07-25 08:39 | PRG ---
DATE OF SERVICE: 07/25/2018 SUBJECTIVE: The patient's condition has been more of gradual deterioration. She did receive 2 units of blood yesterday that were delayed due to multiple antibodies, but eventually she received safe bl ood from the blood bank and had 2 units transfused. Her post-transfusion H and H clarence from 4.9-7.2, platelet count was stable at 33,000, white blood cell count 1,400. The 2 more units of blood were or dered with order to receive 1 unit. The patient was more restless during the night and refused her I V fluids and did not want to receive any more blood. She did ask that her family be brought up. Thi s morning, her daughter, Jayda, and granddaughter, Dot, and son are with her. She has been given m orphine concentrate p.o. and also Ativan 1 mg, now seemed to be resting much more comfortably and is just sleepy. She said, after visit with her family, she is willing to receive another unit of blood, but she said she knows that she is not doing well and is ready to go. The family said that she has had episodes of confusion, even some episodes of hallucination. OBJECTIVE: This morning, the patient is lying in bed, looks more comfortable, is sleepy, does awaken and open her eyes when her name is called and does talk to me. She looks much more comfortable. He r vital signs, her blood pressure this morning was 72/34. Her lungs were clear. Heart, regular rate . Extremities, trace edema. ASSESSMENT: 1. Progressive decline. 2. Severe anemia. A. Secondary to her chronic bleeding from the cancer of the colon and from her myelodysplasia. B. Status post transfusion of 4 units of packed RBCs. 3. Myelodysplasia. 4. Adenocarcinoma of the colon. A. Palliatively managed. 5. Chronic obstructive pulmonary disease. 6. Palliative care. PLAN: The patient's condition is gradually deteriorating. I had a thought that if her condition was going to be more prolonged that she could go to the snf under hospice. This looks like remy t her condition has progressed such that she will require continued care here in skilled care at [facility] for terminal care. We will transfuse patient another unit of blood since she is willing and the blood is available. We will stop the IV fluids. We will continue the morphine concentrate as needed and the Ativan as needed. We will primarily manage the patient with comfort measures only.
[2018-07-25] MEDS ORDERED: diphenhydrAMINE 25 MG CAP PO PRN (09:28)
[2018-07-25] MEDS: Potassium Chloride 10 MEQ TAB PO SCH ×2 (09:37→17:03)
[2018-07-25] MEDS: Albuterol Sulfate 2.5 mg/3 ml Neb NEB SCH ×2 (09:37→19:35)
[2018-07-25] MEDS: Sodium Chloride 0.9% 1,000 ML IV SCH ×2 (09:37→19:08)
[2018-07-25] MEDS: Proctozone-HC 2.5% Cream 30 GM TUBE TOP SCH (09:38)
[2018-07-25 17:09] LABS: Anisocytosis SLIGHT = 6-15 cells (100X) (0-5/hpf); Band 5 % (5-11); Eosinophils 2 % (0-10); Hemoglobin 9.7 g/dL (12.0-16.0); Hypochromia MODERATE=16-30 cells (100X) (0-5/hpf); Large Platelets SLIGHT; Lymphocytes 23 % (21-51); MDiff Complete? YES; Macrocytosis SLIGHT = 6-15 cells (100X) (0-5/hpf); Mean Corpuscular HGB CONC 33.3 g/dL (32.0-36.0); Mean Corpuscular Hemoglobin 36.8 pg (27.0-31.0); Mean Corpuscular Volume 110.4 fL (78.0-98.0); Mean Platelet Volume 10.5 fL (7.4-10.4); Microcytosis SLIGHT = 6-15 cells (100X) (0-5/hpf); Monocytes 7 % (0-10); Neutrophil 63 % (42-75); Ovalocytes SLIGHT = 2-5 cells (100X) (0-1/hpf); PLT Morphology Comment Appears Decreased; Platelet Count 41 thou/uL (130-400); Poikilocytosis SLIGHT = 6-15 cells (100X) (0-5/hpf); RBC Distribution Width 23.1 % (11.5-14.5); Red Blood Cell (RBC) Count 2.64 mill/uL (4.20-5.40); Schistocytes SLIGHT = 2-5 cells (100X) (0-1/hpf)
[2018-07-25] MEDS ORDERED: Sodium Chloride 0.9% 20 ML ONE (19:27)
[2018-07-25] MEDS: Lorazepam 2 MG/ML VIAL SLOW IVP PRN (19:36)
[2018-07-25] MEDS: diphenhydrAMINE 50 MG/ML VIAL IVP PRN (19:38)
[2018-07-25] MEDS: HYDROcodone/Acetaminophen 5/325 mg Tablet PO SCH (20:55)
[2018-07-26] MEDS ORDERED: Sodium Chloride 0.9% 20 ML ONE (00:46)
[2018-07-26] MEDS: Morphine 10 MG/0.5 ML ORAL SYRINGE SL PRN ×5 (00:50→16:38)
[2018-07-26] MEDS: diphenhydrAMINE 50 MG/ML VIAL IVP PRN ×2 (00:50→15:48)
[2018-07-26] MEDS: Lorazepam 2 MG/ML VIAL SLOW IVP PRN ×4 (00:51→17:13)
[2018-07-26 07:44] VITALS: BP 106/53
[2018-07-26] MEDS: Albuterol Sulfate 2.5 mg/3 ml Neb NEB SCH (08:37)
[2018-07-26] MEDS: Proctozone-HC 2.5% Cream 30 GM TUBE TOP SCH (08:46)
--- NOTE | 2018-07-26 08:51 | PRG ---
DATE OF SERVICE: 07/26/2018 SUBJECTIVE: Patient has had restless night. She had the IV lorazepam, which helped her relax. She was not able to take the oral lorazepam tablets. Consequently, she has been getting this IV and it d oes help. The morphine, she is taking sublingual and had to take that 4 times during the night. She was restless and just hurting all over. This morning, she has become sleepy and a little confused w hile awake and hard to understand. OBJECTIVE: Her blood pressure during the night was 79/36, presently is 106/53. She did have the add itional unit of blood, that is a total of 5 units yesterday. At present, on exam, she is lying in be d asleep. When I called her name, she opened her eyes and smiled and seemed to recognize me. She ta lked to me a little bit, but is very difficult to understand any of what she is saying. Her blood pr essure 106/53. Her O2 sats were around 90% on room air. Her temperature is 98.5. Her lungs have co arse expiratory breath sounds. Heart, regular rate. Abdomen, obese. Extremities, trace edema. Ski n is dry. ASSESSMENT: 1. Severe anemia. A. Secondary to chronic blood loss from the lower gastrointestinal tract from her cancer of the colo n and from her myelodysplasia. B. She has received a total of 5 units of packed RBCs. Her last hemoglobin was up to 9.7 yesterday afternoon. 2. Myelodysplasia. A. Complicated by pancytopenia. B. Managed palliatively. 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 B. Complicated by diarrhea. C. Not a candidate for any type of invasive evaluation or treatment due to her comorbidities. D. Palliatively managed. 4. Chronic obstructive pulmonary disease. 5. Hypotension. 6. Palliative management. PLAN: Patient's condition has been one of continual gradual deterioration. We will increase her mor phine up to 20 mg sublingual every 2 hours as needed. Apposition for comfort. Condition will contin ue to deteriorate. She is really not wanting additional transfusions nor the IV fluids.
[2018-07-26 11:47] VITALS: TEMP 99
[2018-07-26] MEDS ORDERED: Scopolamine 1.5 mg/72 hour Patch TOP SCH (13:00)
[2018-07-26] MEDS ORDERED: Atropine Sulfate 1% Ophth Soln 5 ml Bottle PO PRN (13:11)
[2018-07-26] MEDS ORDERED: Sodium Chloride 0.9% 1,000 ML BAG ONE (13:14)
--- NOTE | 2018-07-27 09:19 | DS ---
ADMITTED TO ACUTE CARE: 07/13/2018 TRANSFERRED TO EXTENDED CARE: 07/17/2018 DATE OF EXPIRATION: 07/26/2018 FINAL DIAGNOSES: 1. Severe anemia. A. Secondary to chronic blood loss from the cancer of the colorectum and from her myelodysplasia. B. Received a total of 5 units of packed RBCs during her hospitalization. 2. Myelodysplasia. A. Complicated by pancytopenia. B. Managed palliatively. 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 B. Complicated by diarrhea, probably from obstructive symptoms. C. Not a candidate for any type of invasive evaluation or treatment due to her comorbidities. D. Opted for palliative management. 4. Chronic obstructive pulmonary disease. 5. Hypotension. 6. Palliative management. CAUSE OF : Cancer of the colon, complicated by severe anemia and contributed to by her severe m yelodysplasia. SUMMARY: The patient is a 77-year-old white female who has a history of COPD and a myelodysplasia th at has been complicated by pancytopenia. She has not been a candidate for any type of intervention o r treatment for this nor has she wanted any. She also has a history of an adenocarcinoma of the color ectum. This was found on colonoscopy in 08/2016. At that time, she had a mass at 6-12 cm that showe d a high grade adenocarcinoma at biopsy. Due to her comorbidities, particularly the myelodysplasia, she was not a candidate for any type of intervention nor did she want any. The patient has COPD. Beatriz russell lives at home, and is able to manage her ADLs. She gets around in a wheelchair and walks a short d istance by pushing her wheelchair. Her family looks in on her and assist with her instrumental ADLs. The patient was brought to the emergency room on the evening of 07/13/2018 because of progressive w eakness that had the left her where she could no longer take care of herself. She was also having di arrhea for over a month that has been bloody and she was unable to take care of herself. Her hemoglo bin was 6.5, white cell count was 1400, platelet count 60,000. The patient was having some bloody di arrhea and the patient did not want to be transferred to a hospital of higher level of care. She loly d she wanted to be admitted here. She knew she had the cancer and knew that there was nothing they c ould do and was asking really just to be managed here. The patient was admitted to the hospital and initially was transfused 2 units of packed RBCs. She felt a little better after the blood transfusio ns. She was also placed on neb treatments for her COPD. She continued to have non-formed bowel move ments. A culture of the stools showed only normal enteric issac. The lactoferrin was elevated. Her culture for E. coli 0157, this was negative. Her Campylobacter antigen was negative and the stools were negative for Shiga toxin 1 and 2. The C. difficile antigen and toxin were both negative. The p robbie's chronic diarrhea was felt to be secondary to probable obstructive symptoms from the colon th at was only partially obstructing. She was having chronic bleeding as a result of the stools resulti ng in the severe anemia along with the myelodysplasia. Her blood count did improve after transfusion of 2 units up to 9.2. She was moved to extended care on 07/17/2018 and she was left extremely weak. Physical therapy worked with her for a while in an effort to see if it was possible that her functi onal capabilities could be improved. She made very little progress and essentially stayed in bed. I n visiting with patient, she knew she had a terminal illness and the plans were that as she stabilize d to probably move her to a fdc under hospice care. While in the hospital her blood count a gain dropped to 5.9 and while awaiting for 2 more units of blood to be typed and crossed which was di fficult due to multiple antibodies, her hemoglobin dropped to 4.9. She was given 2 units with the he moglobin coming up to 7.2 on 07/24/2018 and then she was given 1 more unit, bringing her hemoglobin u p to 9.7. The patient's condition, though, continued to deteriorate. She became weaker and did not want to receive any more fluids or transfusion. Her blood pressure was very low on admission and wou ld improve some after the fluids, and after the blood, but then would drop into the 70s. As long as she was at bed rest she had little symptoms are related to this. The patient only was wanting pallia tive care as did the family. The patient was placed on morphine sublingual and given Ativan initiall y p.o. and then IV when she got to where she could not swallow. She became a little more congested f rom upper airway secretions for which she was placed on atropine drops and a scopolamine patch. She gradually became less and less responsive and on the late afternoon of 07/26/2018 her respirations ce ased and she . Her family was in attendance. No resuscitative efforts were made per her requ est for DNR. CAUSE OF : Adenocarcinoma of the colon with partial obstructive symptoms complicated by the sev ere anemia and contributed to by her severe myelodysplasia.
== END 2018-07-26 19:14 | disposition expired | DRG 951 ==
LOC: MADMS 10:57
PROVIDERS: ADMIT Family Medicine; ATTEND Family Medicine
PROC: 30233N1 Transfusion of Nonautologous Red Blood Cells into Peripheral Vein, Percutaneous Approach (ICD-10-PCS; principal; 2018-07-23)
DX: Z51.5 Encounter for palliative care (principal); C19 Malignant neoplasm of rectosigmoid junction; D61.818 Other pancytopenia; R53.1 Weakness; D46.9 Myelodysplastic syndrome, unspecified; D50.0 Iron deficiency anemia secondary to blood loss (chronic); I95.9 Hypotension, unspecified; J44.9 Chronic obstructive pulmonary disease, unspecified; Z99.3 Dependence on wheelchair; K52.9 Noninfective gastroenteritis and colitis, unspecified; Z66 Do not resuscitate; M06.9 Rheumatoid arthritis, unspecified; M81.0 Age-related osteoporosis without current pathological fracture; M47.896 Other spondylosis, lumbar region; I87.2 Venous insufficiency (chronic) (peripheral); M54.5 Low back pain; M47.816 Spondylosis without myelopathy or radiculopathy, lumbar region; Z88.0 Allergy status to penicillin
CPT/HCPCS: 36415; 36430; 80048; 83630; 85025; 86850; 86860; 86870; 86880; 86900; 86901; 86905; 86922; 86972; 86978; 87045; 87046; 87081; 87324; 87449; 87899; A4216; G8987-GO-CK; G8988-GO-CH; J1200; J2060; J7050; J7611; P9016; Q0162